=== PATIENT | male | born 1995 | race Caucasian/White ===

== ENCOUNTER 2016-07-13 04:17 | Emergency (ER) | payer MEDICAID ==
[~2016-07-13] VITALS: Ht 172.7 cm; Wt 65.8 kg
[~2016-07-13 04:17] MED LIST: CLON1TAB4 PO; MISO200T4 PO; OMEP20CA10 PO; ONDA4TAB55 PO; OXYC-508; PRO AIR; [UNRECOGNIZED DRUG - CODE] PO
[2016-07-13 04:30] VITALS: BP 129/74; PULSE 52; RESP 16; TEMP 98.8; O2SAT 98
--- NOTE | 2016-07-13 04:30 | NUR ---
GAVINO Shah at bedside examining patient.
--- NOTE | 2016-07-13 04:30 | NUR ---
Placed in room 06 . Placed on monitoring specialist, blood pressure machine and pulse oximeter. To gown for exam. Side rails up. Report given to SVEN Gannon.
--- NOTE | 2016-07-13 04:30 | NUR ---
Pt was bought in by pt's mother and per pt mother left. Pt complain of abdominal pain level of 7/10 at the time. Pt pointed to generalized abdominal area. Pt spo2 100% Room air. 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 Will continue to monitor Addendum: 07/13/16 at 0653 by [email or web address] Pt awake alert oriented x 4. Clear speech.
[2016-07-13] MEDS ORDERED: PROCHLORPERAZINE EDISYLATE 10 MG/2 ML VIAL IVP ONE (04:45)
[2016-07-13] MEDS ORDERED: DIPHENHYDRAMINE INJ 50 MG/ML VIAL IVP ONE (04:45)
[2016-07-13] MEDS ORDERED: LORazepam 2 MG/ML VIAL (FOR ER USE) IVP ONE ×2 (04:45→05:30)
[2016-07-13] MEDS ORDERED: NACL 0.9% 1,000 ML IV ONE (04:45)
[2016-07-13 05:01] LABS: BASOPHILS # (AUTO) 0.1 K/uL (0.0-0.2); BASOPHILS % (AUTO) 1.8 % (0.0-2.0); EOSINOPHILS # (AUTO) 0.1 K/uL (0.0-0.4); EOSINOPHILS % (AUTO) 1.2 % (0.0-4.0); LYMPHOCYTES # (AUTO) 1.1 K/uL (1.0-5.5); LYMPHOCYTES % (AUTO) 16.6 % (20.5-51.5); MEAN CORPUSCULAR HEMOGLOBIN 32 pg (27-31); MEAN CORPUSCULAR HGB CONC 33 % (32-36); MEAN CORPUSCULAR VOLUME 95 fL (79.0-98.0); MONOCYTES # (AUTO) 0.5 K/uL (0.0-1.0); MONOCYTES % (AUTO) 7.4 % (1.7-9.3); NEUTROPHILS # (AUTO) 5.1 K/uL (1.8-7.7); PLATELET COUNT (AUTO) 273 K/uL (130-430); RED BLOOD CELL COUNT(AUTO) 4.44 MIL/uL (4.2-6.2); RED CELL DISTRIBUTION WIDTH 12.5 % (9.0-15.0); WHITE BLOOD COUNT (AUTO) 6.9 K/uL (4.8-10.8)
--- NOTE | 2016-07-13 05:10 | NUR ---
Dr. Goode at bedside. Addendum: 07/13/[email or web address] Goode at bedside placing brachial IV access via US guide. Md placed 20G IV in L brachial. Blood return noted. Line flushed with 10 ml by MD. No acute distress noted. Will continue to monitor.
[2016-07-13 05:13] LABS: CALCIUM 9.1 mg/dL (8.4-11.0); CREATININE 0.82 mg/dL (0.55-1.30); POTASSIUM 3.7 mmol/L (3.5-5.1)
[2016-07-13 05:17] LABS: ALBUMIN 3.9 g/dL (3.4-4.8); TOTAL BILIRUBIN 0.3 mg/dL (0.0-1.0)
[2016-07-13 05:21] LABS: BARBITURATE, URINE NEGATIVE (NEG <=200); BENZODIAZEPINE, URINE POSITIVE (NEG <=150); CANNABINOID, URINE POSITIVE (NEG <=50); COCAINE, URINE NEGATIVE (NEG <=150); METHAMPHETAMINES SCREEN,URINE POSITIVE (NEG <=500); OPIATE, URINE POSITIVE (NEG <=100); PHENCYCLIDINE SCREEN,URINE NEGATIVE (NEG <=25); UR TRICYCLIC ANTIDEPRESSANTS NEGATIVE (NEG <=300); URINE AMPHETAMINE POSITIVE (NEG <=500); URINE METHADONE NEGATIVE (NEG <=200); URINE OXYCODONE SCREEN NEGATIVE (NEG <=100); URINE PROPOXYPHENE SCREEN NEGATIVE (NEG <=300)
[2016-07-13] MEDS ORDERED: HALOPERIDOL LACTATE 5 MG/ML VIAL IM ONE ×2 (05:30)
[2016-07-13] MEDS ORDERED: KETOROLAC TROMETHAMINE 30 MG VIAL IVP ONE (05:30)
--- NOTE | 2016-07-13 05:30 | NUR ---
Patient c/o pain and withdrawal symptoms, unable to sit still for CT scan. informed.
--- NOTE | 2016-07-13 06:43 | NUR ---
MD DR. MOORE ADMIN KETAMINE VIA IM INJECTION AT BEDSIDE WITH TWO RNs PRESENT. PATIENT TOLERATED WELL. NO ACUTE DISTRESS NOTED. VITAL SIGNS REMAIN STABLE. NURSE REMAINING AT BEDISDE TO MONITOR CLOSELY.
--- NOTE | 2016-07-13 06:44 | NUR ---
Patient mother leaving to parking lot to wait for son's discharge, cell phone number left. Alba- mother will be waiting for call when patient is ready for discharge.
--- NOTE | 2016-07-13 06:44 | NUR ---
pt vital signs stable. Appeared to be tolerating medication. Awake alert oriented x 4. Minor drowsiness noted. Mother at bedside. Pt's mother aware of plan of care and consents to take pt home once the observation of medication is completed
[2016-07-13] MEDS ORDERED: KETAMINE HCL 500 MG/10 ML VIAL IM ONE (06:45)
--- NOTE | 2016-07-13 07:10 | NUR ---
Report given to Gabriel RN at bedside to continue care. Pt eye closed, a sleep, spo2 100% Room air.
--- NOTE | 2016-07-13 07:10 | NUR ---
PT sleeping. Appears in no acute distress. Side rails up. Will continue to monitor.
--- NOTE | 2016-07-13 07:50 | NUR ---
Patient and mother given written and verbal discharge instructions and verbalizes understanding. ER MD discussed with patient and mother the results and treatment provided. Given copies of tests performed in ER. Patient in stable condition. ID arm band removed. IV catheter removed intact and dressing applied, no active bleeding. Rx of zofran given. Patient and mother educated on pain management and to follow up with PMD. Pain Scale 2. Opportunity for questions provided and answered.
[2016-07-13 07:58] VITALS: BP 135/82; PULSE 56; RESP 20; TEMP 98.8; O2SAT 100
== END 2016-07-13 07:58 | disposition home or self-care (01) ==
LOC: SED 04:17
DX: F11.23 Opioid dependence with withdrawal (principal); F41.9 Anxiety disorder, unspecified; K21.9 Gastro-esophageal reflux disease without esophagitis; J45.909 Unspecified asthma, uncomplicated; Z88.8 Allergy status to other drugs, medicaments and biological substances
CPT/HCPCS: 36415; 74176; 80053; 80307; 83690; 85025; 96372; 96374; 96375; 99285; J0780; J1200; J1630; J1885; J2060; J7030